=== PATIENT | male | born 1985 | race Caucasian/White ===

== ENCOUNTER 2024-09-27 05:51 | Emergency (ER) | payer OTHER | END 2024-09-27 06:20 | disposition home or self-care (01) | LOC: ERS 05:51 | DX: F10.10 Alcohol abuse, uncomplicated (principal); F41.9 Anxiety disorder, unspecified; F17.210 Nicotine dependence, cigarettes, uncomplicated; Z00.00 Encounter for general adult medical examination without abnormal findings | CPT/HCPCS: 93005; 99284 ==